=== PATIENT | male | born 1950 | race Caucasian/White ===

== ENCOUNTER 2021-04-25 08:27 | Day surgery (SDC) | payer MEDICARE ==
[2021-04-25] MEDS ORDERED: Midazolam 1 MG/ML 2 ML SDV ONE (08:58)
[2021-04-25] MEDS ORDERED: fentaNYL 100 MCG/2 ML SDV ONE (08:58)
[2021-04-25] MEDS ORDERED: Propofol 200 MG/20 ML SDV ONE (08:58)
[2021-04-25] MEDS ORDERED: Sodium Chloride 0.9% 1,000 ML IV SCH (09:30)
--- NOTE | 2021-04-25 11:09 | OR ---
DATE OF PROCEDURE: 04/25/2021 SURGEON: Jaun Perez MD PROCEDURE: Colonoscopy. FINDINGS: Normal colonoscopy. PREOPERATIVE DIAGNOSIS: Screening colonoscopy. POSTOPERATIVE DIAGNOSIS: Screening colonoscopy. RISKS: Risks, benefits, alternatives, and limitations including, but not limited to infection, bleeding, perforation, false positives and false negatives were explained to the patient who wished to proceed. PROCEDURE IN DETAIL: The patient was placed in left lateral decubitus position. Digital rectal exam was performed without abnormality. Scope was introduced and advanced atraumatically to the ileocecal valve. A photo was taken. Scope was brought back to the ascending, transverse, descending colon, and retroflexed. No evidence of old or new blood. No masses. No polyps. No diverticulosis. No abnormalities on retroflexion. Greater than 8 minutes was spent removing the scope. The patient tolerated the procedure well. Juan Perez MD /[id number]
== END 2021-04-25 12:00 | disposition home or self-care (01) ==
LOC: JP.SDS 08:27
PROVIDERS: ATTEND Surgery
DX: Z12.11 Encounter for screening for malignant neoplasm of colon (principal); I10 Essential (primary) hypertension
CPT/HCPCS: G0121; J2250; J2704; J3010; J7030

== ENCOUNTER 2021-10-21 21:00 | Emergency (ER) | payer MEDICARE ==
[2021-10-21] MEDS ORDERED: Morphine 4 MG/ML Syringe IM ONE (22:03)
[2021-10-22] MEDS ORDERED: Ondansetron 4 MG/2 ML SDV IVPUSH ONE (00:18)
[2021-10-22] MEDS ORDERED: Morphine 4 MG/ML Syringe IVPUSH ONE (02:25)
== END 2021-10-22 04:02 | disposition home or self-care (01) ==
LOC: JP.ED 21:00
DX: S02.40EA Zygomatic fracture, right side, initial encounter for closed fracture (principal); S22.018A Other fracture of first thoracic vertebra, initial encounter for closed fracture; S62.012A Displaced fracture of distal pole of navicular [scaphoid] bone of left wrist, initial encounter for closed fracture; S52.552A Other extraarticular fracture of lower end of left radius, initial encounter for closed fracture; S42.031A Displaced fracture of lateral end of right clavicle, initial encounter for closed fracture; S01.311A Laceration without foreign body of right ear, initial encounter; E78.00 Pure hypercholesterolemia, unspecified; I10 Essential (primary) hypertension; Z88.8 Allergy status to other drugs, medicaments and biological substances; Z88.5 Allergy status to narcotic agent; W18.09XA Striking against other object with subsequent fall, initial encounter; W10.8XXA Fall (on) (from) other stairs and steps, initial encounter
CPT/HCPCS: 12011; 29125; 70450; 70486; 72125; 73030; 73110; 96372; 96374; 96375; 99284; J2270; J2405

== ENCOUNTER 2021-10-22 12:51 | Emergency (ER) | payer MEDICARE ==
[2021-10-22] MEDS ORDERED: Ketorolac 30 MG/ML SDV IM ONE (15:12)
== END 2021-10-22 16:47 | disposition home or self-care (01) ==
LOC: JP.ED 12:51
DX: M79.602 Pain in left arm (principal); E78.00 Pure hypercholesterolemia, unspecified; I10 Essential (primary) hypertension; Z79.899 Other long term (current) drug therapy; Z88.6 Allergy status to analgesic agent; Z88.8 Allergy status to other drugs, medicaments and biological substances
CPT/HCPCS: 96372; 99281; 99283; J1885

== ENCOUNTER 2022-09-15 06:48 | Day surgery (SDC) | payer MEDICARE ==
[2022-09-15] MEDS ORDERED: Lidocaine 1% with EPINEPHrine 1:100,000 50 ML MDV ONE (07:01)
[2022-09-15] MEDS ORDERED: Sodium Tetradecyl Sulfate 1% 20 MG/2 ML SDV ONE (07:01)
[2022-09-15] MEDS ORDERED: Sodium Chloride 0.9% 10 ML ONE (07:01)
[2022-09-15] MEDS ORDERED: Sodium Chloride 0.9% 1,000 ML IV SCH (07:30)
[2022-09-15] MEDS ORDERED: Midazolam 1 MG/ML 2 ML SDV ONE (07:45)
[2022-09-15] MEDS ORDERED: Propofol 200 MG/20 ML SDV ONE (07:45)
[2022-09-15] MEDS ORDERED: fentaNYL 100 MCG/2 ML SDV ONE (07:45)
[2022-09-15] MEDS ORDERED: Lidocaine 1% w/EPINEPHrine 50 ML, Sodium Bicarbonate 5 MEQ in Sodium Chloride 0.9% 950 ML INJECT ONE (08:15)
== END 2022-09-15 11:10 | disposition home or self-care (01) ==
LOC: JP.SDS 06:48
PROVIDERS: ATTEND Surgery
DX: I87.2 Venous insufficiency (chronic) (peripheral) (principal); I10 Essential (primary) hypertension; E78.2 Mixed hyperlipidemia; F41.9 Anxiety disorder, unspecified; F33.41 Major depressive disorder, recurrent, in partial remission; K21.9 Gastro-esophageal reflux disease without esophagitis; Z90.49 Acquired absence of other specified parts of digestive tract; Z90.09 Acquired absence of other part of head and neck; Z96.643 Presence of artificial hip joint, bilateral; Z79.899 Other long term (current) drug therapy; Z88.8 Allergy status to other drugs, medicaments and biological substances
CPT/HCPCS: 36470; 76998; J1642; J2250; J2704; J3010; J3490; J7030

== ENCOUNTER 2024-08-14 07:16 | Day surgery (SDC) | payer MEDICARE ==
[2024-08-14] MEDS ORDERED: fentaNYL 100 MCG/2 ML SDV ONE (07:56)
[2024-08-14] MEDS ORDERED: Propofol 200 MG/20 ML SDV ONE (07:56)
[2024-08-14] MEDS: Lactated Ringers 1,000 ML IV SCH (08:14)
[2024-08-14] MEDS ORDERED: Lactated Ringers 1,000 ML IV SCH (09:45)
== END 2024-08-14 10:32 | disposition home or self-care (01) ==
LOC: JP.SDS 07:16
PROVIDERS: ATTEND Surgery
DX: D64.9 Anemia, unspecified (principal); D12.0 Benign neoplasm of cecum; K20.90 Esophagitis, unspecified without bleeding; K22.89 Other specified disease of esophagus; Z88.8 Allergy status to other drugs, medicaments and biological substances; Z88.6 Allergy status to analgesic agent
CPT/HCPCS: 00813; 43239; 45380; 88305; J2704; J3010; J7120